=== PATIENT | female | born 1930 | race Caucasian/White ===

== ENCOUNTER 2017-05-29 12:20 | Inpatient (IN) | payer OTHER ==
[~2017-05-29] VITALS: Ht 154.9 cm; Wt 55.5 kg
[2017-05-29 13:22] LABS: Basophils # (auto) 0.1 uL; Basophils % (auto) 0.7 % (0.0-2.0); Eosinophils # (auto) 0 uL; Eosinophils % (auto) 0.1 % (0.0-7.0); Hematocrit 43.9 % (36.0-46.0); Hemoglobin 14.6 g/dL (12.2-16.2); Lymphocytes # (auto) 0.9 uL; Lymphocytes % (auto) 7.4 % (10.0-50.0); Mean Corpuscular Hemoglobin 29.9 pg (28.0-32.0); Mean Corpuscular Hgb Conc. 33.2 g/dL (32.0-36.0); Monocytes # (auto) 0.8 uL; Monocytes % (auto) 6.8 % (0.0-12.0); Neutrophils # (auto) 10.2 uL; Platelet Count (auto) 300 10^3/uL (140-450); Red Blood Cells 4.87 10^6/uL (4.0-5.20); Red Cell Distribution Width 13.6 % (11.8-14.3)
[2017-05-29] MEDS ORDERED: SODIUM CHLORIDE 0.9% 500 ML IVB ONE (13:52)
[2017-05-29] MEDS ORDERED: cefTRIAXone 1GM/10ml IVPUSH 10 ML IV ONE (14:00)
[2017-05-29 14:07] LABS: Potassium 3.8 mmol/L (3.5-5.1)
[2017-05-29 14:08] LABS: Albumin 2.8 g/dL (3.4-5.0); BUN/Creatinine Ratio 17.9; Bilirubin, Total 0.9 mg/dL (0.2-1.0); Calcium 8.8 mg/dL (8.5-10.1); Total Protein 7.5 g/dL (6.4-8.2)
[2017-05-29 14:09] LABS: Magnesium 2.6 mg/dL (1.6-2.6)
[2017-05-29 14:22] LABS: INR 1.05 (0.9-1.15); Partial Thromboplastin Time 30.1 sec (22.64-33.71); Prothrombin Time 11.4 sec (9.37-12.3)
[2017-05-29] MEDS ORDERED: ASPirin 81 mg TAB PO ONE (16:15)
[2017-05-29] MEDS ORDERED: HYDROcodone-ACET 5/325MG TAB PO PRN (16:45)
[2017-05-29] MEDS ORDERED: LACTULOSE 20Gm/30ML SOLN PO PRN (16:45)
[2017-05-29] MEDS ORDERED: MORPHINE SULF INJ 2 MG/ML SYRINGE 1ML IV PRN ×2 (16:45)
[2017-05-29] MEDS ORDERED: PROMETHAZINE HCL 25 MG/ML 1ML IV PRN (16:45)
[2017-05-29] MEDS ORDERED: TEMAZEPAM 15 MG CAP PO PRN (16:45)
[2017-05-29] MEDS ORDERED: NITROGLYCERIN 0.4 MG SL TAB SL PRN (16:45)
[2017-05-29] MEDS ORDERED: ALBUTEROL SULF 2.5 MG/0.5ML(0.5%) NEB SOLN NEB PRN (16:45)
[2017-05-29] MEDS ORDERED: ACETAMINOPHEN 500 MG TAB PO PRN (16:45)
[2017-05-29] MEDS ORDERED: LORazepam 0.5 MG TAB PO PRN (16:45)
[2017-05-29] MEDS ORDERED: OSELTAMIVIR 75 MG CAP PO ONE (17:00)
[2017-05-29] MEDS: IPRATROPIUM BROM 0.5 MG/2.5ML INH SOL NEB SCH (18:18)
[2017-05-29] MEDS: ALBUTEROL SULF 2.5 MG/0.5ML(0.5%) NEB SOLN NEB SCH (18:18)
[2017-05-29 19:20] VITALS: BP 126/60
[2017-05-29] MEDS: CARVEDILOL 3.125 MG TAB PO SCH (22:00)
[2017-05-29] MEDS ORDERED: SODIUM CHLOR 0.9% PF (SALINE LOCK) 10ML VIAL IV SCH (22:00)
[2017-05-29] MEDS: OSELTAMIVIR 30 MG CAP PO SCH (22:00)
[2017-05-29] MEDS: SODIUM CHLOR 0.9% PF (SALINE LOCK) 10ML VIAL IV SCH (22:13)
[2017-05-29 23:15] VITALS: BP 133/62
[2017-05-29 23:25] VITALS: BP 133/62
[2017-05-30] MEDS ORDERED: SIMV10TA84 PO (02:15)
[2017-05-30] MEDS ORDERED: AMLO5TAB2 PO (02:15)
[2017-05-30] MEDS ORDERED: BENA5TAB5 PO (02:15)
[2017-05-30 04:42] VITALS: BP 126/72
[2017-05-30] MEDS: SODIUM CHLOR 0.9% PF (SALINE LOCK) 10ML VIAL IV SCH ×3 (05:47→21:47)
[2017-05-30 05:54] LABS: Basophils # (auto) 0 uL; Basophils % (auto) 0.2 % (0.0-2.0); Eosinophils # (auto) 0.1 uL; Eosinophils % (auto) 0.6 % (0.0-7.0); Hematocrit 37.4 % (36.0-46.0); Hemoglobin 12.6 g/dL (12.2-16.2); Lymphocytes % (auto) 9.5 % (10.0-50.0); Mean Corpuscular Hemoglobin 30.1 pg (28.0-32.0); Mean Corpuscular Hgb Conc. 33.7 g/dL (32.0-36.0); Mean Corpuscular Volume 89.3 fL (80.0-100.0); Monocytes % (auto) 9.9 % (0.0-12.0); Neutrophils # (auto) 8.3 uL; Neutrophils % (auto) 79.8 % (37.0-80.0); Nucleated Red Blood Cells % 0.1 %; Platelet Count (auto) 270 10^3/uL (140-450); Red Blood Cells 4.19 10^6/uL (4.0-5.20); Red Cell Distribution Width 13.6 % (11.8-14.3); White Blood Cell 10.3 10^3/uL (4.4-10.8)
[2017-05-30 06:13] LABS: Albumin 2.4 g/dL (3.4-5.0); BUN/Creatinine Ratio 15.5; Bilirubin, Total 0.5 mg/dL (0.2-1.0); Calcium 8.4 mg/dL (8.5-10.1); Potassium 3.9 mmol/L (3.5-5.1); Total Protein 6.3 g/dL (6.4-8.2)
[2017-05-30] MEDS: IPRATROPIUM BROM 0.5 MG/2.5ML INH SOL NEB SCH ×4 (07:10→19:55)
[2017-05-30] MEDS: ALBUTEROL SULF 2.5 MG/0.5ML(0.5%) NEB SOLN NEB SCH ×4 (07:10→19:55)
[2017-05-30 07:32] LABS: Urine Bacteria NONE SEEN /hpf (None Seen); Urine Blood Negative /uL (Negative); Urine Specific Gravity 1.009 (1.001-1.035); Urine WBC 31 /hpf (0 - 5)
[2017-05-30] MEDS ORDERED: ENOXAPARIN SOD 40 MG/0.4 ML SYRINGE SC SCH (10:00)
[2017-05-30] MEDS: OSELTAMIVIR 30 MG CAP PO SCH (10:00)
[2017-05-30] MEDS: FUROSEMIDE 40 MG/4 ML VIAL IV SCH (10:18)
[2017-05-30] MEDS: PANTOPRAZOLE 40 MG TAB PO SCH (10:18)
[2017-05-30] MEDS: ASPirin 81 mg TAB PO SCH (10:18)
[2017-05-30] MEDS: ENALAPRIL MALEATE 2.5 MG TAB PO SCH (10:19)
[2017-05-30] MEDS: CARVEDILOL 3.125 MG TAB PO SCH ×2 (10:20→21:47)
[2017-05-30] MEDS: POTASSIUM CHL 20 Meq TABLET PO SCH (10:20)
[2017-05-30] MEDS: AZITHROMYCIN 500MG/ 250ML 250 ML IV SCH (10:22)
[2017-05-30] MEDS: NITROGLYCERIN 0.2MG/HR TOPICAL PATCH TD SCH (10:24)
[2017-05-30 13:05] VITALS: BP 113/64
[2017-05-30] MEDS: cefTRIAXone 1GM/10ml IVPUSH 10 ML IV SCH (16:49)
[2017-05-30 16:55] VITALS: BP 108/61
[2017-05-30] MEDS: BUDESONIDE (INHALATION) 0.5 MG/2 ML NEB NEB SCH (19:56)
[2017-05-30 21:30] VITALS: BP 119/53
[2017-05-31] MEDS: IPRATROPIUM BROM 0.5 MG/2.5ML INH SOL NEB SCH ×3 (00:04→12:05)
[2017-05-31] MEDS: ALBUTEROL SULF 2.5 MG/0.5ML(0.5%) NEB SOLN NEB SCH ×3 (00:04→12:05)
[2017-05-31 05:00] VITALS: BP 126/53
[2017-05-31] MEDS: SODIUM CHLOR 0.9% PF (SALINE LOCK) 10ML VIAL IV SCH ×2 (06:21→15:06)
[2017-05-31 08:00] VITALS: BP 108/58
[2017-05-31 09:00] VITALS: BP 108/58
[2017-05-31] MEDS: cefTRIAXone 1GM/10ml IVPUSH 10 ML IV SCH (09:44)
[2017-05-31] MEDS: FUROSEMIDE 40 MG/4 ML VIAL IV SCH (09:56)
[2017-05-31] MEDS: AZITHROMYCIN 500MG/ 250ML 250 ML IV SCH (09:56)
[2017-05-31] MEDS: POTASSIUM CHL 20 Meq TABLET PO SCH (09:57)
[2017-05-31] MEDS: PANTOPRAZOLE 40 MG TAB PO SCH (09:57)
[2017-05-31] MEDS: CARVEDILOL 3.125 MG TAB PO SCH (09:58)
[2017-05-31] MEDS: NITROGLYCERIN 0.2MG/HR TOPICAL PATCH TD SCH (09:58)
[2017-05-31] MEDS: ENALAPRIL MALEATE 2.5 MG TAB PO SCH (10:00)
[2017-05-31] MEDS: BUDESONIDE (INHALATION) 0.5 MG/2 ML NEB NEB SCH (10:03)
[2017-05-31] MEDS ORDERED: ENOXAPARIN SOD 40 MG/0.4 ML SYRINGE SC SCH (11:45)
[2017-05-31] MEDS: ASPirin 81 mg TAB PO SCH (12:03)
[2017-05-31 13:00] VITALS: BP 107/64
[2017-05-31] MEDS ORDERED: ENOXAPARIN SOD 40 MG/0.4 ML SYRINGE SC ONE (15:00)
[2017-06-01] MEDS ORDERED: ENOXAPARIN SOD 40 MG/0.4 ML SYRINGE SC SCH (10:00)
== END 2017-05-31 17:00 | disposition home or self-care (01) | DRG 202 ==
LOC: ER 12:20 → TELE 12:21 → TELE-WESTW 23:05
PROVIDERS: ADMIT Internal Medicine; ATTEND Internal Medicine
DX: J20.9 Acute bronchitis, unspecified (principal); I50.43 Acute on chronic combined systolic (congestive) and diastolic (congestive) heart failure; I11.0 Hypertensive heart disease with heart failure; I48.91 Unspecified atrial fibrillation; K59.00 Constipation, unspecified; E78.5 Hyperlipidemia, unspecified; G47.00 Insomnia, unspecified; R79.89 Other specified abnormal findings of blood chemistry; F32.9 Major depressive disorder, single episode, unspecified; F41.9 Anxiety disorder, unspecified; Z82.49 Family history of ischemic heart disease and other diseases of the circulatory system; Z90.89 Acquired absence of other organs; Z90.722 Acquired absence of ovaries, bilateral
CPT/HCPCS: 36415; 71046; 80053; 80061; 81001; 82550; 83605; 83735; 83880; 84443; 84484; 85025; 85610; 85730; 87040; 87400; 93005; 93306; 94640; 94761; 96361; 96374; G9035